=== PATIENT | female | born 1955 | race Caucasian/White ===

== ENCOUNTER 2018-10-16 15:45 | Inpatient (IN) ==
[2018-10-16] MEDS ORDERED: methylPREDNISolone 125 MG/2 ML VIAL IVP ONE (16:01)
[2018-10-16] MEDS ORDERED: Ipratropium/Albuterol Neb 3 ML IH ONE ×2 (16:01→16:41)
--- NOTE | 2018-10-16 16:01 | Emergency Department Note ---
Disposition Clinical Impression: Acute exacerbation of chronic obstructive airways disease Community acquired pneumonia Qualifiers: Laterality: right Lung location: lower lobe of lung Qualified Code(s): J18.1 - Lobar pneumonia, unspecified organism Disposition: Admitted As Inpatient Condition: Fair Forms: ED Satisfaction Letter SOB HPI - General Chief Complaint: ED Shortness of Breath/Dyspnea Stated Complaint: shortness of breath Time Seen by Provider: 10/16/18 16:01 Source: patient, family, EMS Mode of arrival: EMS Limitations: no limitations Nursing Notes Reviewed: Yes Vital Signs Reviewed: Yes - History of Present Illness Patient presents to the ED via EMS with report of an increasingly worsening shortness of breath. States she is not short of breath for about one month but got worse 2 weeks ago and then "really bad" this past week. She reports sore throat and some rhinorrhea that has been yellowish in color. She has had a productive cough of yellow and green sputum. She reports a fever 102 last night. She denies any chest pain. No abdominal pain, nausea, vomiting, diarrhea constipation no recent travel or sick contacts. She does have a long- standing history of COPD and has been own home oxygen for years at 4 L/m. States she has been hospitalized before for her COPD and pneumonia but has never required BiPAP or intubation. She is not recently been on steroids or an tibiotics. She used her albuterol at home 3 times over the course the day today and received one nebulizer treatment by EMS. Per EMS oxygen saturations were in the 50s on their arrival and improved to 99% on a nonrebreather after nebulizer treatment. On arrival here oxygen saturations are in the upper 80s on 4 L. She is able to speak in complete sentences with no obvious increased work of ge thing. - Related Data Home Medications Medication Instructions Recorded Confirmed Albuterol Neb [Proventil Neb] 2.5 mg IH Q4HR PRN 10/16/18 10/16/18 Albuterol Sulfate [Albuterol 1 - 2 puff IH Q4-6H PRN 10/16/18 10/16/18 Inhaler] BuPROPion XL (24 HR) [Wellbutrin 150 mg PO DAILY 10/16/18 10/16/18 XL] Paroxetine HCl [Paxil] 40 mg PO DAILY 10/16/18 10/16/18 Umeclidinium [place] [Incruse 62.5 mcg IH DAILY 10/16/18 10/16/18 Ellipta] Allergies Allergy/AdvReac Type Severity Reaction Status Date / Time No Known Allergies Allergy Verified 10/16/18 16:08 Constitutional: Reports: fever. Denies: chills, weakness, weight change Eyes: Denies: eye pain, eye discharge, vision change ENT ED: Reports: congestion. Denies: ear pain, throat pain, dental pain, hearing loss, epistaxis, dysphagia Cardiovascular: Denies: chest pain, palpitations, dyspnea on exertion, edema, syncope Respiratory: Reports: as per HPI, cough, dyspnea, wheezes, sputum production. Denies: hemoptysis, stridor Gastrointestinal: Denies: abdominal pain, nausea, vomiting, diarrhea, consti pation, hematemesis, melena, hematochezia Genitourinary: Denies: dysuria, frequency, hematuria, discharge Musculoskeletal: Denies: back pain, neck pain, arthralgia, myalgia Integumentary: Denies: rash, abrasion, lesions Neurological: Denies: headache, weakness, numbness, paresthesias, confusion, abn ormal gait, vertigo Psychiatric: Denies: anxiety, depression, suicidal thoughts, homicidal thoughts, auditory hallucinations, visual hallucinations Endocrine: Denies: fatigue Hematological/Lymphatic: Denies: easy bleeding, easy bruising Allergic/Immunologic: Denies: facial swelling, urticaria Physical Exam - General Limitations: no limitations General appearance: alert, in no apparent distress - Head Head exam: atraumatic, normocephalic, normal inspection - Eye Eye exam: Present: normal appearance, PERRL, EOMI - ENT ENT exam: normal exam, normal oropharynx, mucous membranes moist - Neck Neck exam: Present: normal inspection, full ROM, trachea midline. Absent: lymphadenopathy - Chest Chest inspection: Present: normal inspection, symmetric chest wall rise - Respiratory Respiratory exam: Present: wheezes. Absent: respiratory distress - Expanded Respiratory Exam Location: wheezes: Left, Right, Upper, Lower (diffuse) - Cardiovascular Cardiovascular exam: Present: regular rate, normal rhythm, normal heart sounds - Abdominal Exam Abdominal exam: Present: soft, Non-Tender. Absent: tenderness, distention, guarding, rebound, rigidity - Extremities Exam Extremities exam: Present: normal inspection, full ROM. Absent: tenderness, pedal edema - Back Exam Back exam: Present: normal inspection, full ROM. Absent: tenderness - Neurological Exam Neurological exam: Present: alert, oriented X3 - Psychiatric Psychiatric exam: Present: normal affect, normal mood - Skin Skin exam: Present: warm, dry, intact, normal color Course Course Narrative: Patient presents to the ED via EMS complaining of progressively worsening shortness breath as well as productive cough, congestion and fever yesterday. On arrival she is not in any respiratory distress but does show hypoxia and has diffuse wheezing. She is otherwise hemodynamically stable. We will give additional breathing treatments and steroids. I suspect COPD exacerbation with the possibility of pneumonia. Less likely cardiac pathology. Will obtain chest x-ray and lab work. - Reevaluation(s) Reevaluation #1: Patient still wheezing after first neb treatment. We will give an additional neb treatment. ABG shows normal pH but both hypoxia and hyper Needed. Senna she is a chronic CO2 retainer. Labs shows a mild leukocytosis. Electrolytes are normal. Troponin is normal. Lactic acid is normal. Chest x-ray shows possibility of right lower lobe pneumonia which would be consistent with her presentation. Will start IV antibiotics. She does not meet sepsis criteria at this time. Time: 16:52 Reevaluation #2: After 2 breathing treatments patient reports feeling much better. She states her breathing is and was back to baseline. She has no conversational dyspnea and no increased work of breathing. On further discussion she states that her oxygen saturations are normally in the upper 90s when she is not ill. She states they hospitalize her when her saturations are in the 60s or 70s. Discussed with patient the need for admission for antibiotics and continue breathing treatments and she is in agreement. Based on her ABG and clinical presentation I do not feel that BiPAP is needed at this time as saturations are sitting around 90% at this time. I have spoken to the hospitalist on-call, Dr. Hart, who has agreed to accepted her. Time: 18:12 Vital Signs Temperature 97.7 F 10/16/18 15:58 Pulse Rate 112 10/16/18 15:58 Respiratory Rate 20 10/16/18 15:58 Blood Pressure 120/59 10/16/18 15:58 O2 Sat by Pulse Oximetry 89 10/16/18 15:58 Temperature 97.7 F 10/16/18 15:58 Pulse Rate 114 10/16/18 17:44 Respiratory Rate 20 10/16/18 17:44 Blood Pressure 137/83 10/16/18 17:44 O2 Sat by Pulse Oximetry 87 10/16/18 17:44 Oxygen Delivery Oxygen Delivery Nasal Cannula Shortness of Breath/Dyspnea - Differential Diagnosis Likely: acute exacerbation of chronic obstructive airways disease, pneumonia. Unlikely: congestive heart failure, pulmonary embolism - Medical Records Medical records reviewed: Yes I reviewed the patient's medical records. - Lab Data Lab results reviewed: Yes I reviewed the patient's lab results. Result diagrams: 10/16/18 16:18 10/16/18 16:18 Lab Results 10/16/18 10/16/18 10/16/18 Range/Units 16:18 16:18 16:18 WBC 14.4 H (4.3-11.1) K/mcL RBC 3.87 (3.82-4.97) M/mcL Hgb 12.9 (11.5-15.4) g/dL Hct 39.6 (35.3-44.9) % MCV 102.3 H (83.0-100.0) fL MCH 33.3 (28.0-33.3) pg MCHC 32.6 (31.6-35.5) g/dL RDW 12.8 (11.5-14.5) % Plt Count 200 (140-400) K/mcL MPV 10.3 (9.4-12.4) fL Immature Gran % 0.5 (0-4) % Seg Neutrophils % 78.2 % Lymphocytes % 11.6 % Monocytes % 9.1 % Eosinophils % 0.3 % Basophils % 0.3 % Neutrophils # 11.3 H (1.6-8.9) K/mcL Lymphocytes # 1.7 (0.6-4.6) K/mcL Monocytes # 1.3 (0.0-1.3) K/mcL Eosinophils # 0.0 (0.0-0.6) K/mcL Basophils # 0.0 (0.0-0.2) K/mcL D-Dimer 414 (0-500) ng/mLFEU Sample Site ABG pH (7.32-7.45) pH Units ABG pCO2 (35-45) mmHg ABG pO2 (85-104) mmHg ABG HCO3 (21-27) mEq/L ABG Total CO2 (20-26) mEq/L ABG O2 Saturation (95-98) % ABG Base Excess (-2 to 3) mEq/L Jules Test O2 Delivery Device Inspired O2 (1-15=lpm [id number]=%) Sodium 138 (136-145) mEq/L Potassium 4.0 (3.5-5.1) mEq/L Chloride 96 L (98-107) mEq/L Carbon Dioxide 38 H (23-29) mEq/L BUN 5 L (8-23) mg/dL Creatinine 0.66 (0.60-1.20) mg/dL Est GFR ( Amer) > 60 (> 60) Est GFR (Non-Af Amer) > 60 (> 60) BUN/Creatinine Ratio 8 (6-26) Glucose 110 H (70-105) mg/dL Calculated Osmolality 284 (280-300) Lactic Acid (0.5-2.2) mmol/L Calcium 8.9 (8.6-10.3) mg/dL Troponin I < 0.03 (< 0.04) ng/mL B-Natriuretic Peptide (Less than 100) pg/mL 10/16/18 10/16/18 10/16/18 Range/Units 16:18 16:18 16:34 WBC (4.3-11.1) K/mcL RBC (3.82-4.97) M/mcL Hgb (11.5-15.4) g/dL Hct (35.3-44.9) % MCV (83.0-100.0) fL MCH (28.0-33.3) pg MCHC (31.6-35.5) g/dL RDW (11.5-14.5) % Plt Count (140-400) K/mcL MPV (9.4-12.4) fL Immature Gran % (0-4) % Seg Neutrophils % % Lymphocytes % % Monocytes % % Eosinophils % % Basophils % % Neutrophils # (1.6-8.9) K/mcL Lymphocytes # (0.6-4.6) K/mcL Monocytes # (0.0-1.3) K/mcL Eosinophils # (0.0-0.6) K/mcL Basophils # (0.0-0.2) K/mcL D-Dimer (0-500) ng/mLFEU Sample Site L Brach ABG pH 7.36 (7.32-7.45) pH Units ABG pCO2 65 H (35-45) mmHg ABG pO2 53 L (85-104) mmHg ABG HCO3 36 H (21-27) mEq/L ABG Total CO2 38 H (20-26) mEq/L ABG O2 Saturation 84 L (95-98) % ABG Base Excess 8 H (-2 to 3) mEq/L Jules Test N/A O2 Delivery Device Cannula Inspired O2 3.0 (1-15=lpm [id number]=%) Sodium (136-145) mEq/L Potassium (3.5-5.1) mEq/L Chloride (98-107) mEq/L Carbon Dioxide (23-29) mEq/L BUN (8-23) mg/dL Creatinine (0.60-1.20) mg/dL Est GFR ( Amer) (> 60) Est GFR (Non-Af Amer) (> 60) BUN/Creatinine Ratio (6-26) Glucose (70-105) mg/dL Calculated Osmolality (280-300) Lactic Acid 0.6 (0.5-2.2) mmol/L Calcium (8.6-10.3) mg/dL Troponin I (< 0.04) ng/mL B-Natriuretic Peptide 209 H (Less than 100) pg/mL - Radiology Data Radiology results reviewed: Yes I reviewed the patient's radiology results. ITS Impressions Chest X-Ray 10/16/18 16:01 IMPRESSION: Right basilar pulmonary opacity may represent atelectasis, and/or pneumonia. Recommend radiographic follow-up to complete resolution. Findings suggestive of COPD. RECOMMENDATION: Recommend radiographic follow-up to complete resolution. D/ / 10/16/2018 16:21:10 Ant Anguiano MD / lona Interpreting Provider: Ant Anguiano MD
[2018-10-16 16:24] LABS: Basophils % 0.3 %; Eosinophils % 0.3 %; Hematocrit 39.6 % (35.3-44.9); Hemoglobin 12.9 g/dL (11.5-15.4); Immature Granulocytes % 0.5 % (0-4); Lymphocytes # 1.7 K/mcL (0.6-4.6); Lymphocytes % 11.6 %; Mean Corpuscular HGB Conc 32.6 g/dL (31.6-35.5); Mean Corpuscular Hemoglobin 33.3 pg (28.0-33.3); Mean Corpuscular Volume 102.3 fL (83.0-100.0); Mean Platelet Volume 10.3 fL (9.4-12.4); Monocytes # 1.3 K/mcL (0.0-1.3); Monocytes % 9.1 %; Neutrophils # 11.3 K/mcL (1.6-8.9); Platelet Count 200 K/mcL (140-400); Red Blood Count 3.87 M/mcL (3.82-4.97); Red Cell Distribution Width 12.8 % (11.5-14.5); Segmented Neutrophils % 78.2 %
[2018-10-16 16:38] LABS: ABG Base Excess 8 mEq/L (-2 to 3); ABG HCO3 36 mEq/L (21-27); ABG Oxygen Saturation 84 % (95-98); ABG PCO2 65 mmHg (35-45); ABG PH 7.36 pH Units (7.32-7.45); ABG PO2 53 mmHg (85-104); ABG TCO2 38 mEq/L (20-26)
[2018-10-16 16:39] LABS: BUN/Creatinine Ratio 8 (6-26); Blood Urea Nitrogen 5 mg/dL (8-23); Calcium 8.9 mg/dL (8.6-10.3); Carbon Dioxide 38 mEq/L (23-29); Chloride 96 mEq/L (98-107); Glucose 110 mg/dL (70-105); Osmolality,Calculated 284 (280-300); Sodium 138 mEq/L (136-145); eGFR For Non-African Americans > 60 (> 60)
[2018-10-16] MEDS ORDERED: cefTRIAXone 2,000 MG in 0.9 % Sodium Chloride Mini Bag 100 ML IVPB ONE (16:43)
[2018-10-16] MEDS ORDERED: Azithromycin 500 MG in D5% in Water 250 ML IVPB ONE (16:43)
[2018-10-16 16:44] LABS: Troponin I < 0.03 ng/mL (< 0.04)
[2018-10-16] MEDS ORDERED: Naloxone 0.4 MG/ML INJ IVP PRN ×2 (18:16→18:44)
[2018-10-16] MEDS: Ipratropium/Albuterol Neb 3 ML IH SCH (20:52)
[2018-10-17] MEDS: Ipratropium/Albuterol Neb 3 ML IH SCH ×3 (00:58→08:49)
[2018-10-17] MEDS: (Umeclidinium Bromide [Incruse Ellipta] 62.5 MCG) IH SCH (10:04)
[2018-10-17] MEDS: BuPROPion XL (24 HR) 150 MG TABLET PO SCH (10:04)
--- NOTE | 2018-10-17 10:06 | Internal Med History&Physical ---
Date of Encounter: 10/17/18 Time of Encounter: 09:35 Assessment and Plan (1) Community acquired pneumonia Current visit: Yes Status: Acute She was started on Rocephin and Zithromax in emergency room for right lower lobe pneumonia. These will be continued with lactobacillus. Chest CT will be done to further evaluate. Qualifiers: Laterality: right Lung location: lower lobe of lung Qualified Code(s): J18.1 - Lobar pneumonia, unspecified organism (2) Macrocytosis Current visit: Yes Status: Acute Order B12, folate, and TSH. (3) Elevated brain natriuretic peptide (BNP) level Current visit: Yes Status: Acute Order echocardiogram to further evaluate. (4) Acute exacerbation of chronic obstructive airways disease Current visit: Yes Status: Acute Order antibiotics and IV steroids with albuterol nebs. Internal Medicine - H&P: HPI Chief complaint: Dyspnea and cough Admitted From: Emergency Dept Plans for Post Hospital Care: Home History of present illness: Ms. Mccurdy is a 63 year old female who came to emergency room complaining of increased dyspnea for the past month with worsening in the past few days. She claims she had cough productive of yellow sputum with occasional blood tinged sputum. She had fevers and chills. She received a Z-Kashif approximately 3-4 weeks ago from her PCP with minimal improvement. She was evaluated in emergency room and felt to have right lower lobe pneumonia. She was admitted to [facility] floor for ongoing care needs. She states her breathing is slightly improved at the present time. Respiratory history is significant for having smoked since age 18 up to 2 packs per day. She claims she had PFTs several years ago and was told she has COPD. She uses oxygen at bedtime and when necessary during the daytime. She denies testing for MONIQUE. 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" - Social History Smoking Status: Current every day smoker Packs per day: 1 Smokeless Tobacco Status: No Alcohol use: none Drug use: none Internal Medicine - H&P: Meds Albuterol Neb [Proventil Neb] 2.5 mg IH Q4HR PRN 10/16/18 [History] Albuterol Sulfate [Albuterol Inhaler] 1 - 2 puff IH Q4-6H PRN 10/16/18 [History] BuPROPion XL (24 HR) [Wellbutrin XL] 150 mg PO DAILY 10/16/18 [History] Paroxetine HCl [Paxil] 40 mg PO DAILY 10/16/18 [History] Umeclidinium [place] [Incruse Ellipta] 62.5 mcg IH DAILY 10/16/18 [History] Allergy/AdvReac Type Severity Reaction Status Date / Time No Known Allergies Allergy Verified 10/16/18 16:08 All Systems PM: A 10-system review of systems was performed and is negative for pertinent findings except as documented above in the HPI. Review of systems: Gen.: She states her weight is increased proximate 20 pounds in the past year, unintentionally Cardiovascular: She denies hypertension OH heart failure angina DVT or pulmonary embolus. She has significant dyspnea on exertion. Respiratory: As per history of present illness GI: She denies disorders of her liver gallbladder or exocrine pancreas. She reports she had abdominal surgery in 1972 with segmental small bowel resection for unknown diagnosis. She reports additional small bowel was resected in 1976. She had another surgery in 1982 with partial gastrectomy and esophagectomy with additional small bowel and segmental colon resection. She reports intermittent diarrhea has been present since the last surgery. She reports her last colonoscopy was approximately 30 years ago. : She denies hematuria dysuria or kidney stones. She has had hysterectomy. Neurologic: She denies large distention strokes or seizures. Endocrine: She denies diabetes thyroid disease or hyperlipidemia Hematology/oncology: She has had anemia in the past. She denies internal malignancies or other blood disorders. Psychiatric: She has anxiety and depression but denies other mental health issues. [place] skeletal: she denies arthritis gout or other bone joint or muscle disorders. - Constitutional Vitals: Temp Pulse Resp BP Pulse Ox 98.2 F 104 18 104/62 96 10/17/18 06:57 10/17/18 06:57 10/17/18 06:57 10/17/18 06:57 10/17/18 06:57 Exam: Gen.: She is a well-developed well-nourished female resting in bed who appears slightly dyspneic HEENT: Head is atraumatic and normocephalic. Eyes: EOMI. There is no scleral icterus. Mouth: Mucosa is moist. Neck: Supple and nontender. There is no thyromegaly or adenopathy noted. Heart: Regular without murmurs gallops or ectopics. Rate is approximately 124/m Lungs: She has prolonged expiratory phase and mild diffuse wheezing. No egophony is heard. Abdomen: Soft and nontender. No masses or guarding are noted. She has well- healed surgical scars. Extremities: There is no cyanosis edema or clubbing noted. Dorsalis pedis and posttibial pulses are trace to 1+ palpable bilaterally. Neurologic: Mental status: She is talkative and a good historian. Cranial nerves: Smile is symmetric. Forehead wrinkles bilaterally. Tongue protrudes midline. EOMI. Motor: There is no pronator drift. Cerebellar: Finger to nose is intact bilaterally. Skin: Warm and dry Internal Med - H&P Results - Labs CBC & Chem 7: 10/16/18 16:18 10/16/18 16:18 Labs: Short CBC 10/16/18 Range/Units 16:18 WBC 14.4 H (4.3-11.1) K/mcL Hgb 12.9 (11.5-15.4) g/dL Hct 39.6 (35.3-44.9) % Plt Count 200 (140-400) K/mcL Neutrophils # 11.3 H (1.6-8.9) K/mcL BMP 10/16/18 16:18 Sodium 138 Potassium 4.0 Chloride 96 L Carbon Dioxide 38 H BUN 5 L Creatinine 0.66 Glucose 110 H Calcium 8.9 Cardiac Enzymes 10/16/18 Range/Units 16:18 Troponin I < 0.03 (< 0.04) ng/mL - ABG Interpretation ABG results: 10/16/18 16:34 ABG pH 7.36 ABG pCO2 65 H ABG pO2 53 L ABG HCO3 36 H ABG Total CO2 38 H ABG O2 Saturation 84 L ABG Base Excess 8 H - Impressions ITS Impressions Chest X-Ray 10/16/18 16:01 IMPRESSION: 1. Right basilar pulmonary opacity may represent atelectasis, and/or pneumonia. Recommend radiographic follow-up to complete resolution. 2. Findings suggestive of COPD. RECOMMENDATION: Recommend radiographic follow-up to complete resolution. D/ / 10/16/2018 16:21:10 Ant Anguiano MD / lona Interpreting Provider: Ant Anguiano MD - VTE Reasons for not Prescribing Prophylaxis: Treatment not Indicated - Low risk for VTE
[2018-10-17] MEDS ORDERED: cefTRIAXone 1,000 MG in Water for inj. (sterile) 20 ML 10 ML IVP SCH (16:00)
[2018-10-17] MEDS: methylPREDNISolone 125 MG/2 ML VIAL IVP SCH ×2 (17:49→23:57)
[2018-10-17] MEDS: Azithromycin 500 MG in D5% in Water 250 ML IVPB SCH (17:50)
[2018-10-17] MEDS ORDERED: ALPRAZolam 1 MG TABLET PO PRN (18:30)
[2018-10-17] MEDS: Lactobacillus 1 EACH CAP.SPRINK PO SCH (20:52)
[2018-10-17 21:03] LABS: Folate 12.3 ng/mL (3.0-16.0)
[2018-10-18 06:16] LABS: Basophils # 0.1 K/mcL (0.0-0.2); Basophils % 0.4 %; Hematocrit 38.7 % (35.3-44.9); Hemoglobin 12.1 g/dL (11.5-15.4); Immature Granulocytes % 2.3 % (0-4); Lymphocytes # 0.8 K/mcL (0.6-4.6); Mean Corpuscular HGB Conc 31.3 g/dL (31.6-35.5); Mean Corpuscular Hemoglobin 33.1 pg (28.0-33.3); Mean Corpuscular Volume 105.7 fL (83.0-100.0); Mean Platelet Volume 10.6 fL (9.4-12.4); Monocytes # 0.2 K/mcL (0.0-1.3); Monocytes % 1.5 %; Neutrophils # 12.3 K/mcL (1.6-8.9); Platelet Count 212 K/mcL (140-400); Red Blood Count 3.66 M/mcL (3.82-4.97); Red Cell Distribution Width 12.9 % (11.5-14.5); Segmented Neutrophils % 89.8 %
[2018-10-18 06:40] LABS: Alanine Aminotransferase 4 Units/L (7-52); Albumin 3.4 g/dL (3.5-5.7); Albumin/Globulin Ratio 1.1 (1.1-2.2); Alkaline Phosphatase 88 Units/L (34-104); Aspartate Amino Transferase 8 Units/L (13-39); BUN/Creatinine Ratio 20 (6-26); Bilirubin,Total 0.2 mg/dL (0.3-1.0); Blood Urea Nitrogen 13 mg/dL (8-23); Calcium 8.7 mg/dL (8.6-10.3); Carbon Dioxide 37 mEq/L (23-29); Chloride 98 mEq/L (98-107); Globulin 3.2 g/dL (2.4-3.5); Glucose 288 mg/dL (70-105); Osmolality,Calculated 301 (280-300); Potassium 4.7 mEq/L (3.5-5.1); Sodium 140 mEq/L (136-145); Total Protein 6.6 g/dL (6.4-8.9); eGFR For Non-African Americans > 60 (> 60)
[2018-10-18] MEDS: Acetaminophen 325 MG TABLET PO PRN ×2 (08:30→16:56)
[2018-10-18] MEDS: methylPREDNISolone 125 MG/2 ML VIAL IVP SCH (10:26)
[2018-10-18] MEDS: Lactobacillus 1 EACH CAP.SPRINK PO SCH ×2 (10:29→20:50)
[2018-10-18] MEDS: BuPROPion XL (24 HR) 150 MG TABLET PO SCH (10:29)
--- NOTE | 2018-10-18 10:56 | Internal Med Progress Note ---
Date of Encounter: 10/18/18 Time of Encounter: 10:45 - Assessment and plan (1) Community acquired pneumonia Current Visit: Yes Status: Acute Assessment and plan: October 18. Discontinue Rocephin and use Levaquin to avoid diarrhea. Continue Zithromax and lactobacillus. Qualifiers: Laterality: right Lung location: lower lobe of lung Qualified Code(s): J18.1 - Lobar pneumonia, unspecified organism (2) Macrocytosis Current Visit: Yes Status: Acute Assessment and plan: October 18. TSH slightly suppressed at 0.237. B12 and folate normal. (3) Elevated brain natriuretic peptide (BNP) level Current Visit: Yes Status: Acute Assessment and plan: October 18. Echocardiogram showed LVEF of 50-55%. The E/A ratio was 0.7 consistent with mild diastolic dysfunction. No significant valvular abnormalities were noted. BN peptide improved to 145 today. Start low-dose Toprol. (4) Acute exacerbation of chronic obstructive airways disease Current Visit: Yes Status: Acute Assessment and plan: Change Rocephin to Levaquin. Continue steroids, lactobacillus, and nebulizer treatments. Recheck labs in a.m. - Subjective Interval history: October 18. She states she feels unimproved and is having some diarrhea. - Constitutional Vitals: Temp Pulse Resp BP Pulse Ox 97.7 F 106 16 127/87 93 10/18/18 06:39 10/18/18 06:39 10/18/18 06:39 10/18/18 06:39 10/18/18 06:39 Exam: She is lying in bed and appears slightly dyspneic. She coughed frequently during the visit. I reviewed her medications and lab results. I discussed the CT and echo reports with her. Internal Medicine: Result - Labs CBC & Chem 7: 10/18/18 05:45 10/18/18 05:45 Labs: Short CBC 10/18/18 Range/Units 05:45 WBC 13.7 H (4.3-11.1) K/mcL Hgb 12.1 (11.5-15.4) g/dL Hct 38.7 (35.3-44.9) % Plt Count 212 (140-400) K/mcL Neutrophils # 12.3 H (1.6-8.9) K/mcL BMP 10/18/18 05:45 Sodium 140 Potassium 4.7 Chloride 98 Carbon Dioxide 37 H BUN 13 Creatinine 0.64 Glucose 288 H Calcium 8.7 Liver Function 10/18/18 Range/Units 05:45 Total Bilirubin 0.2 L (0.3-1.0) mg/dL AST 8 L (13-39) Units/L ALT 4 L (7-52) Units/L Alkaline Phosphatase 88 (34-104) Units/L Albumin 3.4 L (3.5-5.7) g/dL - ABG Interpretation ABG results: ABG ABG pH 7.36 pH Units (7.32-7.45) 10/16/18 16:34 ABG pCO2 65 mmHg (35-45) H 10/16/18 16:34 ABG pO2 53 mmHg (85-104) L 10/16/18 16:34 ABG O2 Saturation 84 % (95-98) L 10/16/18 16:34 PT/INR, D-dimer D-Dimer 414 ng/mLFEU (0-500) 10/16/18 16:18 - Impressions Impressions Chest CT 10/17/18 10:00 IMPRESSION: 1. No suspicious lung nodules or infiltrates. 2. Centrilobular and paraseptal emphysema with areas of mild bronchiectasis, most pronounced in the lung bases. 3. Small hiatal hernia. 4. Atherosclerotic disease. 5. Enlarged left anterior and superior mediastinal lymph node measuring up to 1.5 cm. Follow-up CT of the chest with IV contrast in 3 months is recommended for further evaluation. D/ / 10/17/2018 11:53:34 Neeraj Vo MD / Sandra Langston Interpreting Provider: Neeraj Vo MD Echocardiogram 10/17/18 10:00 Impressions: LVEF 50-55%. Mild left ventricular diastolic dysfunction. Normal right ventricular structure and function. No significant valvular dysfunction. No pulmonary hypertension. Left Ventricular Wall Motion: Rest Echo Findings All wall segments showed normal motion. Findings: Study Quality * Technically challenging due to COPD. ECG Findings * Normal sinus rhythm, HR 90's. Left Ventricle * Mild left ventricular diastolic dysfunction. * LVEF 50-55%. * Normal LV chamber size and wall thickness. Right Ventricle * Normal right ventricular structure and function. Left Atrium * Normal left atrial size. Right Atrium * Normal right atrial size. Aortic Valve * No aortic regurgitation. * No aortic stenosis. * Aortic valve not well visualized. Mitral Valve * Normal mitral valve structure. * No mitral stenosis. * Trace mitral regurgitation. Tricuspid Valve * Tricuspid valve not well visualized. * Trace tricuspid regurgitation. * Estimated RA pressure is 8 mmHg. * Estimated RVSP is 30 mmHg. * No pulmonary hypertension. Pulmonic Valve * Pulmonic valve is not well visualized. * No pulmonic stenosis. * No pulmonic regurgitation. Pulmonary Artery * Pulmonary artery not well visualized. Aorta * Normally sized aortic root. Pericardium * There is no pericardial effusion present. Interatrial Septum * No evidence of PFO by color Doppler. IVC * The IVC is not dilated. * < 50% respiratory change. - VTE Reasons for not Prescribing Prophylaxis: Treatment not Indicated - Low risk for VTE Consult Discharge Plan - Plan Referrals: NONE,PCP [Primary Care Provider] - 1 week
[2018-10-18] MEDS ORDERED: Levofloxacin 500 MG/100 ML 500 MG/100 ML BAG IVPB SCH (11:00)
[2018-10-18] MEDS: (Umeclidinium Bromide [Incruse Ellipta] 62.5 MCG) IH SCH (11:15)
[2018-10-18] MEDS: Metoprolol XL (24 HR) Succ 25 MG TAB.ER.24H PO SCH (11:55)
[2018-10-18] MEDS: Albuterol 2.5 MG/3 ML NEBULIZER IH PRN ×2 (15:10→21:24)
[2018-10-18] MEDS: predniSONE 20 MG TABLET PO SCH (16:06)
[2018-10-18] MEDS: Azithromycin 500 MG in D5% in Water 250 ML IVPB SCH (17:58)
[2018-10-18] MEDS ORDERED: ALPRAZolam 1 MG TABLET PO SCH (21:00)
[2018-10-19 04:48] LABS: Basophils # 0.1 K/mcL (0.0-0.2); Basophils % 0.3 %; Hematocrit 36.7 % (35.3-44.9); Hemoglobin 11.5 g/dL (11.5-15.4); Immature Granulocytes % 2.7 % (0-4); Lymphocytes # 1.5 K/mcL (0.6-4.6); Lymphocytes % 9.2 %; Mean Corpuscular HGB Conc 31.3 g/dL (31.6-35.5); Mean Corpuscular Volume 105.2 fL (83.0-100.0); Mean Platelet Volume 10.3 fL (9.4-12.4); Monocytes % 6.1 %; Nucleated Red Blood Cells 0.1 /100 WBC (0); Platelet Count 201 K/mcL (140-400); Red Blood Count 3.49 M/mcL (3.82-4.97); Red Cell Distribution Width 12.7 % (11.5-14.5); Segmented Neutrophils % 81.7 %
[2018-10-19 07:04] VITALS: BP 131/84
[2018-10-19] MEDS: (Umeclidinium Bromide [Incruse Ellipta] 62.5 MCG) IH SCH (08:54)
[2018-10-19] MEDS: Metoprolol XL (24 HR) Succ 25 MG TAB.ER.24H PO SCH (08:55)
[2018-10-19] MEDS: Lactobacillus 1 EACH CAP.SPRINK PO SCH (08:55)
[2018-10-19] MEDS: Acetaminophen 325 MG TABLET PO PRN (08:56)
[2018-10-19] MEDS: predniSONE 20 MG TABLET PO SCH (08:56)
[2018-10-19] MEDS: BuPROPion XL (24 HR) 150 MG TABLET PO SCH (08:56)
--- NOTE | 2018-10-19 10:22 | Discharge Summary ---
Orders not resulted at time of discharge: Pending orders 10/16/18 16:30 Culture,Blood [] Stat Date of Encounter: 10/19/18 Time of Encounter: 10:10 - Discharge Diagnosis (1) Community acquired pneumonia Priority: Primary Status: Acute Qualifiers: Laterality: right Lung location: lower lobe of lung Qualified Code(s): J18.1 - Lobar pneumonia, unspecified organism (2) Macrocytosis Priority: Secondary Status: Acute (3) Elevated brain natriuretic peptide (BNP) level Priority: Secondary Status: Acute (4) Acute exacerbation of chronic obstructive airways disease Priority: Secondary Status: Acute Hospital course: Ms. Mccurdy is a 63 year old female who came to emergency room complaining of increased dyspnea for the past month with worsening in the past few days. She claims she had cough productive of yellow sputum with occasional blood tinged sputum. She had fevers and chills. She received a Z-Kashif approximately 3-4 weeks ago from her PCP with minimal improvement. She was evaluated in emergency room and felt to have right lower lobe pneumonia. She was admitted to [facility] for ongoing care needs. Initial orders were written by the emergency room physician. I saw her on October 17 and performed a history and physical. She was started on IV Rocephin and Zithromax in emergency room for right lower lobe pneumonia. Solu-Medrol was given and lactobacillus was added. Chest CT was done to further evaluate. No obvious infiltrate was seen on chest CT. There was centrilobular and paraseptal emphysema with mild areas of bronchiectasis. There was an enlarged left anterior superior cervical mediastinal lymph node measuring 1.5 cm in short axis. Follow-up chest CT with IV contrast in 3 months was recommended for follow-up evaluation. Her PCP can order this. WBC remained slightly elevated at 15.9 on day of discharge with slight left shift on differential. She remained afebrile during her hospital stay and had clinical improvement overall. She will continue with antibiotic and probiotic for 3 additional days at discharge. Macrocytosis workup showed B12 382, folate 12.3, and TSH slightly suppressed at 0.237. Her PCP can recheck TSH as clinically needed. On October 19 she was stable for discharge home. She will follow with her PCP Aracelis Gonzalez CNP within 1 week. I encouraged her to become a nonsmoker. - Time Spent with Patient Total time spent providing and/or coordinating discharge services: - Discharge Medications Prescriptions: Azithromycin [Zithromax] 250 mg PO DAILY #3 tablet Lactobacillus [Culturelle] 1 each PO BID #6 cap.sprink levoFLOXacin [Levaquin] 500 mg PO DAILY #3 tablet predniSONE [PredniSONE] 10 mg PO BIDWM #6 tablet Home Medications: Albuterol Neb [Proventil Neb] 2.5 mg IH Q4HR PRN 10/16/18 [History] Albuterol Sulfate [Albuterol Inhaler] 1 - 2 puff IH Q4-6H PRN 10/16/18 [History] BuPROPion XL (24 HR) [Wellbutrin Xl] 150 mg PO DAILY 10/16/18 [History] Paroxetine HCl [Paxil] 40 mg PO DAILY 10/16/18 [History] Umeclidinium [place] [Incruse Ellipta] 62.5 mcg IH DAILY 10/16/18 [History] Azithromycin [Zithromax] 250 mg PO DAILY #3 tablet 10/19/18 [Rx] Lactobacillus [Culturelle] 1 each PO BID #6 cap.sprink 10/19/18 [Rx] levoFLOXacin [Levaquin] 500 mg PO DAILY #3 tablet 10/19/18 [Rx] predniSONE [PredniSONE] 10 mg PO BIDWM #6 tablet 10/19/18 [Rx] Allergies/Adverse Reactions: Allergy/AdvReac Type Severity Reaction Status Date / Time No Known Allergies Allergy Verified 10/16/18 16:08 Date of admission: 10/18/18 12:06 Primary care physician: Aracelis Gonzalez REFUGE MANAGER - Constitutional Vitals: Temp Pulse Resp BP Pulse Ox 98.3 F 102 15 131/84 93 10/19/18 07:00 10/19/18 07:00 10/19/18 07:00 10/19/18 07:00 10/19/18 07:00 - Patient Status Disposition: Home, Self-Care Condition: Fair - Discharge Instructions Follow Up With: NONE,PCP [Primary Care Provider] - 1 week - Diet and Activity Activity: resume usual activities as tolerated, wear oxygen at night Diet: advance to your usual diet - VTE Reasons for not Prescribing Prophylaxis: Treatment not Indicated - Low risk for VTE
--- NOTE | 2018-10-19 12:51 | Electrocardiograph Report ---
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
--- NOTE | 2018-10-19 16:56 | Electrocardiograph Report ---
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
== END 2018-10-19 13:54 | disposition home or self-care (01) | DRG 194 ==
LOC: EMEROOPIK 15:45 → INPPIK 15:45
PROVIDERS: ADMIT Internal Medicine; ATTEND Internal Medicine

== ENCOUNTER 2019-03-02 15:18 | Observation (INO) ==
[2019-03-02] MEDS ORDERED: Ipratropium/Albuterol Neb 3 ML IH ONE (15:20)
[2019-03-02] MEDS ORDERED: methylPREDNISolone 125 MG/2 ML VIAL IVP ONE (15:20)
--- NOTE | 2019-03-02 15:21 | Emergency Department Note ---
Disposition Clinical Impression: Acute exacerbation of chronic obstructive airways disease Disposition: Admitted As Inpatient Condition: Fair Referrals: NONE,PCP [Non-Partnered Physician] - Forms: ED Satisfaction Letter SOB HPI - General Chief Complaint: ED Shortness of Breath/Dyspnea Stated Complaint: breathing difficulty Time Seen by Provider: 03/02/19 15:20 Source: patient, family Mode of arrival: private vehicle Limitations: physical limitation Nursing Notes Reviewed: Yes Vital Signs Reviewed: Yes - History of Present Illness Patient presents with a history of increased shortness of breath for couple days. She states seemed to get worse after she ran out of her oxygen for about 4 hours yesterday. She states she is supposed to be on 3 L by nasal cannula. Her son visited today and she was short of breath with a saturation of 68% and he states she was on 4 L nasal cannula at that time. She denies any increase in cough or phlegm but she does feel tight and wheezy. She describes as a tight squeezing chest discomfort that she has had before with her COPD. Denies fevers or chills. She has had history of some pneumonia in the past but this does not feel similar. She has a lower extremity immobilization, injury, swelling or pain. She initially stated she was on her normal medicines but then does admit to being out of her inhalers for about a week. She has been admitted at [facility] as well as this hospital last 4 months for her COPD. She relates she follows up with [facility] cardiology. She is stated to have a history of COPD and some diastolic heart failure. She does continue to smoke. She does not have history of coronary artery disease, diabetes, elevated cholesterol or obesity. The patient was saturating at 64% on room air on arrival but is at 92-94% on 3 L nasal cannula. Her respiratory rate is 20, heart rate is 71. Pt Subjective Complaint: shortness of breath Onset (ago): day(s) Severity: moderate, severe Consistency/Duration: gradually worsening Improves with: oxygen, rest, bronchodilators Worsens with: exertion Known history of: COPD Associated symptoms: Reports: chest pain (Tightness with breathing), wheezing. Denies: pain with inspiration, fever, cough, sputum production, orthopnea, lower extremity pain, polyuria, polydipsia, parasthesias, palpitations, hemoptysis, diaphoresis, nausea/vomiting, syncope, abdominal pain, rash Treatment prior to arrival: oxygen Cough present: No - Related Data Home oxygen amount: 3 liters Home Medications Medication Instructions Recorded Confirmed Albuterol Neb [Proventil Neb] 2.5 mg IH Q4HR PRN 10/16/18 10/16/18 Albuterol Sulfate [Albuterol 1 - 2 puff IH Q4-6H PRN 10/16/18 10/16/18 Inhaler] BuPROPion XL (24 HR) [Wellbutrin 150 mg PO DAILY 10/16/18 10/16/18 Xl] Paroxetine HCl [Paxil] 40 mg PO DAILY 10/16/18 10/16/18 Umeclidinium [place] [Incruse 62.5 mcg IH DAILY 10/16/18 10/16/18 Ellipta] Previous Rx's Medication Instructions Recorded Azithromycin [Zithromax] 250 mg PO DAILY #3 tablet 10/19/18 Lactobacillus [Culturelle] 1 each PO BID #6 cap.sprink 10/19/18 levoFLOXacin [Levaquin] 500 mg PO DAILY #3 tablet 10/19/18 predniSONE [PredniSONE] 10 mg PO BIDWM #6 tablet 10/19/18 Allergies Allergy/AdvReac Type Severity Reaction Status Date / Time No Known Allergies Allergy Verified 10/16/18 16:08 All systems ED: reviewed and negative except as stated. Past Medical History - Past Medical History Attestation: Yes The following information was validated with the patient. Source: patient, old records reviewed, obtained from family, nursing notes reviewed Medical history: Reports: CHF (Diastolic), COPD. Denies: coronary artery disease, diabetes, hyperlipidemia, hypertension, myocardial infarction Psychiatric history: Reports: anxiety, depression - Social History Smoking Status: Current every day smoker Smokeless Tobacco Status: No Alcohol use: Reports: none Drug use: Reports: none Physical Exam - General Limitations: physical limitation General appearance: alert, in no apparent distress - Head Head exam: atraumatic, normocephalic, normal inspection - Eye Eye exam: Present: normal appearance, PERRL, EOMI. Absent: conjunctival injection - ENT ENT exam: normal exam, normal oropharynx, mucous membranes moist - Neck Neck exam: Present: normal inspection, full ROM, trachea midline - Chest Chest inspection: Present: normal inspection, symmetric chest wall rise - Respiratory Respiratory exam: Present: respiratory distress, wheezes, prolonged expiratory phase. Absent: accessory muscle use - Cardiovascular Cardiovascular exam: Present: regular rate, normal rhythm, normal heart sounds. Absent: tachycardia - Abdominal Exam Abdominal exam: Present: soft, Non-Tender, normal bowel sounds. Absent: tenderness, distention, guarding, rebound, rigidity - Extremities Exam Extremities exam: Present: normal inspection, full ROM, normal capillary refill. Absent: tenderness, pedal edema, calf tenderness - Expanded Lower Extremity Exam Neurovascular/Tendon exam: Present: normal capillary refill. Absent: motor deficit, sensory deficit, tendon deficit Gait: observed and normal (Able to stand and transfer to the examination bed from a wheelchair without difficulty.) - Back Exam Back exam: Present: normal inspection, full ROM. Absent: tenderness - Neurological Exam Neurological exam: Present: alert, oriented X3 - Psychiatric Psychiatric exam: Present: normal affect, normal mood. Absent: agitated, anxious - Skin Skin exam: Present: warm, dry, intact, normal color. Absent: diaphoresis, pallor Course Course Narrative: 1640: With return of testing, the patient continues to state and wheezy. I discussed care with Dr. Hatr and he is agreeable with inpatient observation. The patient's son states he has contacted the pharmacy and she had not picked up her medications yet this month. He will be able to obtain those for her tomorrow. I believe it will be safest to keep her in the hospital until she has a safe discharge with access to her medicines. She currently does not have a congested cough, fever or symptoms to suggest respiratory infection. Dr. Hart feels comfortable going with aerosol treatments, steroid and inpatient observation. If she is developing more cough, fever or other symptoms to herald an infection additional medications will be added. Care is coronary to the floor with verbal orders obtained. Vital Signs Temperature 98.7 F 03/02/19 15:20 Pulse Rate 95 03/02/19 15:20 Respiratory Rate 24 03/02/19 15:20 Blood Pressure 112/71 03/02/19 15:20 O2 Sat by Pulse Oximetry 88 03/02/19 15:20 Temperature 98.7 F 03/02/19 15:24 Pulse Rate 85 03/02/19 17:02 Respiratory Rate 19 03/02/19 17:02 Blood Pressure 113/74 03/02/19 17:02 O2 Sat by Pulse Oximetry 94 03/02/19 17:02 Oxygen Delivery Oxygen Delivery Nasal Cannula Shortness of Breath/Dyspnea - Differential Diagnosis Likely: acute exacerbation of chronic obstructive airways disease, congestive h eart failure, pneumonia, asthma with exacerbation - Medical Records Medical records reviewed: Yes I reviewed the patient's medical records. Echocardiogram Name: Candice Mccurdy Date of Study: 10/17/2018 Date: 1955 EV/EV echocardiogram Impressions: LVEF 50-55%. Mild left ventricular diastolic dysfunction. Normal right ventricular structure and function. No significant valvular dysfunction. No pulmonary hypertension. Left Ventricular Wall Motion: Rest Echo Findings All wall segments showed normal motion. - Lab Data Lab results reviewed: Yes I reviewed the patient's lab results. Result diagrams: 03/02/19 15:42 03/02/19 15:42 Lab Results 03/02/19 03/02/19 03/02/19 Range/Units 15:42 15:42 15:42 WBC 7.8 (4.3-11.1) K/mcL RBC 3.88 (3.82-4.97) M/mcL Hgb 12.2 (11.5-15.4) g/dL Hct 39.8 (35.3-44.9) % MCV 102.6 H (83.0-100.0) fL MCH 31.4 (28.0-33.3) pg MCHC 30.7 L (31.6-35.5) g/dL RDW 13.6 (11.5-14.5) % Plt Count 112 L (140-400) K/mcL MPV 12.0 (9.4-12.4) fL Immature Gran % 0.4 (0-4) % Seg Neutrophils % 69.7 % Lymphocytes % 21.1 % Monocytes % 8.0 % Eosinophils % 0.5 % Basophils % 0.3 % Neutrophils # 5.4 (1.6-8.9) K/mcL Lymphocytes # 1.6 (0.6-4.6) K/mcL Monocytes # 0.6 (0.0-1.3) K/mcL Eosinophils # 0.0 (0.0-0.6) K/mcL Basophils # 0.0 (0.0-0.2) K/mcL PT 11.6 (9.4-12.1) Seconds INR 1.0 APTT 21.1 L (26.0-36.0) Seconds Sodium 140 (136-145) mEq/L Potassium 3.8 (3.5-5.1) mEq/L Chloride 95 L (98-107) mEq/L Carbon Dioxide 43 H* (23-29) mEq/L BUN 6 L (8-23) mg/dL Creatinine 0.55 L (0.60-1.20) mg/dL Est GFR ( Amer) > 60 (> 60) Est GFR (Non-Af Amer) > 60 (> 60) BUN/Creatinine Ratio 11 (6-26) Glucose 164 H (70-105) mg/dL Calculated Osmolality 291 (280-300) Calcium 8.9 (8.6-10.3) mg/dL Troponin I < 0.03 (< 0.04) ng/mL B-Natriuretic Peptide (Less than 100) pg/mL 03/02/19 Range/Units 15:42 WBC (4.3-11.1) K/mcL RBC (3.82-4.97) M/mcL Hgb (11.5-15.4) g/dL Hct (35.3-44.9) % MCV (83.0-100.0) fL MCH (28.0-33.3) pg MCHC (31.6-35.5) g/dL RDW (11.5-14.5) % Plt Count (140-400) K/mcL MPV (9.4-12.4) fL Immature Gran % (0-4) % Seg Neutrophils % % Lymphocytes % % Monocytes % % Eosinophils % % Basophils % % Neutrophils # (1.6-8.9) K/mcL Lymphocytes # (0.6-4.6) K/mcL Monocytes # (0.0-1.3) K/mcL Eosinophils # (0.0-0.6) K/mcL Basophils # (0.0-0.2) K/mcL PT (9.4-12.1) Seconds INR APTT (26.0-36.0) Seconds Sodium (136-145) mEq/L Potassium (3.5-5.1) mEq/L Chloride (98-107) mEq/L Carbon Dioxide (23-29) mEq/L BUN (8-23) mg/dL Creatinine (0.60-1.20) mg/dL Est GFR ( Amer) (> 60) Est GFR (Non-Af Amer) (> 60) BUN/Creatinine Ratio (6-26) Glucose (70-105) mg/dL Calculated Osmolality (280-300) Calcium (8.6-10.3) mg/dL Troponin I (< 0.04) ng/mL B-Natriuretic Peptide 28 (Less than 100) pg/mL - Radiology Data Radiology results reviewed: Yes I reviewed the patient's radiology results. Single view chest x-ray was obtained. This demonstrates a circular density in the right basal lung which appears somewhat similar to imaging from September 2018. She shows hyperexpansion consistent with COPD. I do not see an area of focal infiltrate, effusion or pneumothorax. She appears to have some apical emphysema. Cardiac silhouette is borderline enlarged. This is on my interpretation. Impressions Chest X-Ray 03/02/19 15:20 IMPRESSION: COPD with no acute infiltrate or pulmonary edema D/ / Barber Madrid MD / Barber Madrid MD Interpreting Provider: Barber Madrid MD - EKG Data EKG attestation: Yes I reviewed and interpreted this EKG. EKG shows normal: Reports: sinus rhythm, axis, intervals, QRS complexes, ST-T waves Rate: Reports: normal (91) Interpretation: Reports: no acute changes, normal EKG
[2019-03-02 15:50] LABS: Basophils % 0.3 %; Eosinophils % 0.5 %; Hematocrit 39.8 % (35.3-44.9); Hemoglobin 12.2 g/dL (11.5-15.4); Immature Granulocytes % 0.4 % (0-4); Lymphocytes # 1.6 K/mcL (0.6-4.6); Lymphocytes % 21.1 %; Mean Corpuscular HGB Conc 30.7 g/dL (31.6-35.5); Mean Corpuscular Hemoglobin 31.4 pg (28.0-33.3); Mean Corpuscular Volume 102.6 fL (83.0-100.0); Monocytes # 0.6 K/mcL (0.0-1.3); Neutrophils # 5.4 K/mcL (1.6-8.9); Platelet Count 112 K/mcL (140-400); Red Blood Count 3.88 M/mcL (3.82-4.97); Red Cell Distribution Width 13.6 % (11.5-14.5); Segmented Neutrophils % 69.7 %
[2019-03-02 15:56] LABS: Prothrombin Time 11.6 Seconds (9.4-12.1)
[2019-03-02 15:59] LABS: Activated Partial Thrombo Time 21.1 Seconds (26.0-36.0)
[2019-03-02 16:25] LABS: BUN/Creatinine Ratio 11 (6-26); Blood Urea Nitrogen 6 mg/dL (8-23); Calcium 8.9 mg/dL (8.6-10.3); Carbon Dioxide 43 mEq/L (23-29); Chloride 95 mEq/L (98-107); Glucose 164 mg/dL (70-105); Osmolality,Calculated 291 (280-300); Potassium 3.8 mEq/L (3.5-5.1); Sodium 140 mEq/L (136-145); Troponin I < 0.03 ng/mL (< 0.04); eGFR For Non-African Americans > 60 (> 60)
[2019-03-02] MEDS ORDERED: Acetaminophen 325 MG TABLET PO ONE (17:26)
[2019-03-02] MEDS ORDERED: Mag Hydrox/Al Hydrox/Simeth 30 ML UDC PO PRN (18:25)
[2019-03-02] MEDS ORDERED: Ondansetron 4 MG/2 ML VIAL IVP PRN (18:25)
[2019-03-02] MEDS ORDERED: Albuterol 2.5 MG/3 ML NEBULIZER IH PRN (18:25)
[2019-03-02] MEDS ORDERED: Naloxone 0.4 MG/ML INJ IVP PRN (18:25)
[2019-03-02] MEDS ORDERED: MOM Conc 10 ML UD.LIQ PO PRN (18:25)
[2019-03-02] MEDS: predniSONE 20 MG TABLET PO SCH (20:22)
[2019-03-02] MEDS: Ipratropium/Albuterol Neb 3 ML IH SCH (22:04)
[2019-03-03] MEDS: Ipratropium/Albuterol Neb 3 ML IH SCH ×3 (04:36→15:20)
[2019-03-03] MEDS: predniSONE 20 MG TABLET PO SCH (09:13)
[2019-03-03 11:21] VITALS: BP 115/65
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
--- NOTE | 2019-03-03 18:02 | Electrocardiograph Report ---
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
== END 2019-03-03 15:59 | disposition home or self-care (01) ==
LOC: EMEROOPIK 15:18 → INPPIK 15:18
PROVIDERS: ADMIT Internal Medicine; ATTEND Internal Medicine